=== PATIENT | male | born 1965 | race Two or more races ===

== ENCOUNTER 2022-07-21 19:50 | Emergency (ER) | payer SELFPAY ==
[~2022-07-21] VITALS: Ht 162.6 cm; Wt 84.1 kg
[2022-07-21 20:07] VITALS: BP 146/80
== END 2022-07-21 20:24 | disposition left against medical advice (07) ==
LOC: ER 19:56
DX: F10.229 Alcohol dependence with intoxication, unspecified (principal); R00.0 Tachycardia, unspecified; R46.89 Other symptoms and signs involving appearance and behavior; F17.210 Nicotine dependence, cigarettes, uncomplicated; Y90.9 Presence of alcohol in blood, level not specified